=== PATIENT | female | born 1975 | race Caucasian/White ===

== ENCOUNTER → 2023-09-19 17:17 | Outpatient (REF) | payer OTHER, SELFPAY | LOC: RAD 17:17 | PROVIDERS: ATTENDING PHYSICIAN Family Medicine | DX: R07.81 Pleurodynia (principal) | CPT/HCPCS: 71101 ==

== ENCOUNTER → 2024-05-15 06:15 | Day surgery (SDC) | payer OTHER, SELFPAY | LOC: GI 06:15 | PROVIDERS: ATTENDING PHYSICIAN Internal Medicine | DX: Z12.11 Encounter for screening for malignant neoplasm of colon (principal); K63.5 Polyp of colon | CPT/HCPCS: 45380; 88305 ==

== ENCOUNTER → 2025-07-20 18:19 | Outpatient (REF) | payer OTHER, SELFPAY | LOC: RAD 18:19 | PROVIDERS: ATTENDING PHYSICIAN Nurse Practitioner; FAMILY PHYSICIAN Family Medicine | DX: M54.12 Radiculopathy, cervical region (principal); M54.50 Low back pain, unspecified | CPT/HCPCS: 72052; 72110 ==